=== PATIENT | female | born 1960 | race Caucasian/White ===

== ENCOUNTER 2017-02-11 17:56 | Emergency (ER) | payer MEDICARE ==
[~2017-02-11 17:56] MED LIST: AMOXICILLIN500 MG PO; BACTRIM DS1 TAB OR; BENADRYL 50MG C50 MG PO; BENADRYL25 M1 OR; BENADRYL25 MG PO; FLUOCINONIDE0.055 EX; GABAPENTIN300 MG PO; HYDROXYZ HCL25 MG PO; LORATADINE10 M1 PO; LORTAB 5/3255 MG PO; LORTAB 7.57.5 MG PO; LORTAB5 OR; LORTAB5 PO; MEDDOSEPAK OR; MEDDOSEPAK PO; MELOXICAM15 MG PO; MELOXICAM7.5 MG PO; NAPROSYN500 MG PO; NO; PEPCID20 MG PO; PERCOCET 10/31 COMBO PO; PREDNISONE20 MG PO; PREDNISONE5 MG PO; TRAMADOL HCL50 MG PO; ULTRAM50 M1 PO; VISTARIL25 MG PO
== END 2017-02-11 18:05 | disposition left against medical advice (07) ==
LOC: ED 17:56 → LWOBS 18:05
DX: Z91.19 Patient's noncompliance with other medical treatment and regimen (principal)

== ENCOUNTER 2017-10-11 02:03 | Emergency (ER) | payer MEDICARE ==
[~2017-10-11] VITALS: Ht 170.2 cm; Wt 65.0 kg
[~2017-10-11 02:03] MED LIST changes: +GABAPENTIN100 MG PO; -GABAPENTIN300 MG PO
[2017-10-11 03:06] VITALS: BP 159/110
== END 2017-10-11 03:06 | disposition home or self-care (01) ==
LOC: ED 02:03
DX: S39.012A Strain of muscle, fascia and tendon of lower back, initial encounter (principal); M96.1 Postlaminectomy syndrome, not elsewhere classified; R59.9 Enlarged lymph nodes, unspecified; X50.1XXA Overexertion from prolonged static or awkward postures, initial encounter; Y93.9 Activity, unspecified; Y92.009 Unspecified place in unspecified non-institutional (private) residence as the place of occurrence of the external cause

== ENCOUNTER 2018-01-01 11:20 | Observation (INO) | payer MEDICARE ==
[~2018-01-01] VITALS: Ht 170.2 cm; Wt 63.1 kg
--- NOTE | 2018-01-01 11:20 | NUR ---
PATIENT TO ROOM, COMMECTED TO MONITOR, EKG OBTAINED. O2 APPIED AT 2L/MIN. PATIENT HAS TREMORS TO UPPER AND LOWER EXTERMITIES. REPORTS HX OF RESTLESS LEG SYNDROME.
[2018-01-01 12:14] LABS: HEMATOCRIT 39.1 % (37.0-47.0); HEMOGLOBIN 12.6 g/dl (12.0-16.0); IMMATURE GRANULOCYTES 0.4 % (0.0-5.0); MEAN CORPUSCULAR HGB 29.1 pG CALC (26.0-32.0); MEAN CORPUSCULAR HGB CONC 32.2 g/L CALC (32.0-36.0); NEUT# 3.41 thou/uL (2.00-7.15); RED BLOOD COUNT 4.33 mill/uL (4.20-5.60); RED CELL DISTRI WIDTH 13.6 % (11.5-15.5)
[2018-01-01 12:22] LABS: MEAN CELL VOLUME 90.3 fL CALC (80.0-100.0)
[2018-01-01 12:32] LABS: ALBUMIN 4.3 g/dL (3.2-5.0); ALKALINE PHOSPHATASE 80 u/l (38-126); AMYLASE 79 u/l (30-110); ANION GAP 14 (6-22 (CALC)); BILIRUBIN, TOTAL 0.6 mg/dL (0.0-1.4); BUN 12 mg/dL (7-17); BUN/CREATININE RATIO 17 (12-20 (CALC)); CARBON DIOXIDE 27 mmol/l (22-30); CHLORIDE 104 mmol/l (95-108); CREATININE 0.7 mg/dL (0.5-1.0); GFR > 60 ML/MIN (>=60 (CALC)); GFR FOR AFR.AMER. > 60 ML/MIN (>=60 (CALC)); LIPASE 77 u/l (23-300); POTASSIUM 4.3 mmol/l (3.5-5.1); SODIUM 140 mmol/l (137-146); TOTAL PROTEIN 7.7 g/dL (6.3-8.2)
--- NOTE | 2018-01-01 12:35 | NUR ---
PATIENT REPORTS CHEST PAIN 3/10 AND BACK PAIN 6/10 REPORTS CHRONIC BACK PAIN. PATIENT VERBALIZES REQUEST TO LEAVE. INFORMED OF BP 171/103. MEDICATED WITH CLONIDINE 0.2 PO. TOLERATING WELL. REQUESTING PAIN MEDS TO TREAT BACK PAIN. INFORMED.
[2018-01-01 12:36] LABS: SGOT/AST 51 u/l (14-36)
[2018-01-01 12:43] LABS: MYOGLOBIN 19 ng/mL (0 - 62)
--- NOTE | 2018-01-01 13:45 | NUR ---
PATIENT REPORTS CHEST PRESSURE 3/10 AND BACK PAIN 3/10. DENIES ANY NEEDS AT THIS TIME. WILL CONTINUE TO MONITOR.
--- NOTE | 2018-01-01 14:40 | NUR ---
PATIENT MEDICATED WITH 324 MG OF ASPIRIN.
--- NOTE | 2018-01-01 15:09 | NUR ---
ATTEMPT MADE TO CALL REPORT, SPOKE TO LYDIA. NURSE NOT AVAILABLE AT THIS TIME. WILL CONTINUE TO MONITOR.
--- NOTE | 2018-01-01 15:22 | NUR ---
REPORT CALLED TO KRISTY OCONNOR.
--- NOTE | 2018-01-01 15:30 | NUR ---
PT TRANSFERRED TO FLOOR VIA WHEELCHAIR IN STABLE CONDITION ACCOMPANIED BY YIRN;PT AMBULATED TO STANDING SCALE AND BEDSIDE WITH A STEADY GAIT;WT AND VS OBTAINED BY WRITTER;ORIENTED TO ROOM AND CALL LIGHT SYSTEM;PT REPORTS CHEST DISCOMFORT FOR THE PAST FEW MTHS,STATES THAT IT COMES AND GOES AT TIMES.NOTHING MAKES IT BETTER OR WORSE;ASSESSMENT COMPLETED;PT ALERT AND ORIENTED X3,HYPERVERBAL;RESPIRATIONS EVEN AND UNLABORED ON RA,CLEAR LUNG SOUNDS;ABDOMEN SOFT ON PALPATION AND ACTIVE IN ALL 4 QUADRANTS,LAST BM 01/01/18;STRONG PEDAL PULSES;SKIN INTACT;#18G TO LAC FLUSHED AND PATENT,SITE APPEARS HEALTHY;TELE MONITOR IN PLACE;PT REPORTS VISUAL IMPAIRMENT R/T [place];SANDWICH PROVIDED PER REQUEST;ENCOURAGED TO CALL FOR ASSISTANCE IF NEEDED;CALL LIGHT IN REACH;WILL CONTINUE TO MONITOR
--- NOTE | 2018-01-01 15:30 | NUR ---
PATIENT TRANSPORTED TO [facility] VIA WHEELCHAIR WITH TELE MONITOR IN PLACE. KRISTY OCONNOR AT BEDSIDE. CARE RELINQUISHED. PATIENT IN STABLE CONDITION.
[2018-01-01 16:00] VITALS: BP 110/85
[2018-01-01 16:01] VITALS: BP 124/67
--- NOTE | 2018-01-01 17:18 | NUR ---
PT TRANSFERRED TO [facility] IN STABLE CONDITION VIA WHEELCHAIR ACCOMPANIED BY SALVADOR ZACARIAS
--- NOTE | 2018-01-01 17:30 | NUR ---
PT RETUENED BACK TO FLOOR IN STABLE CONDITION
[2018-01-01 18:23] LABS: URINE BILIRUBIN - DIPSTICK NEGATIVE (NEGATIVE); URINE BLOOD DIPSTICK NEGATIVE (NEGATIVE); URINE COLOR YELLOW; URINE GLUCOSE - DIPSTICK NEGATIVE (NEGATIVE); URINE KETONE NEGATIVE (NEGATIVE); URINE LEUK ESTERASE MODERATE (Negative); URINE NITRITE - DIPSTICK NEGATIVE (Negative); URINE PH 7.5 (4.5-8.0); URINE PROTEIN - DIPSTICK NEGATIVE (NEG-TRACE); URINE SPECIFIC GRAVITY <=1.005; URINE UROBILINOGEN - DIPSTICK 0.2 E.U./dL (0.2)
[2018-01-01 18:24] LABS: BARBITURATES NEGATIVE (NEGATIVE); COCAINE NEGATIVE (NEGATIVE); METHADONE NEGATIVE (NEGATIVE); OXCYCODONE NEGATIVE (NEGATIVE); TETRAHYDROCANNABIONOL NEGATIVE (NEGATIVE); TRICYLIC ANTIDEPRESSANTS NEGATIVE (NEGATIVE); URINE CLARITY CLEAR
[2018-01-01 18:31] LABS: URINE SQUAMOUS EPITHELIAL CELL FEW EPI/hpf (0-FEW)
[2018-01-01 18:55] VITALS: BP 124/80
--- NOTE | 2018-01-01 20:19 | NUR ---
PT CAME INTO HALLWAY DRESSED W/SHOES ON STATING THAT IF SHE CANNOT GET HER PAIN MEDICATION SHE WILL NOT STAY. PHYSICIAN CONTACTED FOR ORDERS.
--- NOTE | 2018-01-01 21:50 | NUR ---
PT IS UP DRESSED WALKING DOWN THE [place] ASKING FOR ICE/PROVIDED AND PT MEDICATED FOR REPORTED PAIN 8/10 ON PAIN SCALE. PT IS NOW SITTING ON BED W/ONE ONE LEG UP UNDER HER AND TENNIS SHOES ON. I WAS IN THE ROOM SHE PROCEEDED TO AMBULATE AROUND THE ROOM MOVING THINGS AROUND AND REARRANGING HER BST. I OFFERED ASSISTANCE AND REMINDED HER TO USE HER CALL LIGHT ALSO SHE NEEDS ASSISTANCE, SHE REPLIED, "OH I'M FINE, I DON'T NEED ANY HELP." PT WAS ASSESSED AT THIS TIME. NO S/O EDEMA, DENIES N/V. ABD FIRM/NON-TENDER AT THIS TIME, LOCX3. PT REPORTS THAT SHE DOES NOT DRIVE DUE TO [place] AND WOULD HAVE WALKED HOME IF SHE COULD NOT HAVE GOTTEN HER MEDICATIONS TONIGHT. POC DISCUSSED W/PT AND PT ENCOURAGED TO PLEASE CALL IF SHE HAS ANY OTHER NEEDS ARISE.
--- NOTE | 2018-01-01 23:50 | NUR ---
PT WALKED OUT TO NURSES STATION REQUESTING ADDITIONAL BLANKET/PROVIDED
[2018-01-02 00:12] VITALS: BP 90/53
--- NOTE | 2018-01-02 01:23 | NUR ---
PT WALKED OUT TO NURSES STATION REQUESTING ADDITIONAL PILLOWS/PROVIDED
--- NOTE | 2018-01-02 04:00 | NUR ---
PT MEDICATED FOR PAIN REPORTED 7/10 IN LOWER BACK. PT DENIES ANY OTHER NEEDS AT THIS TIME. CALL LIGHT AT BEDSIDE AND PT ENCOURAGED TO CALL IF ANY NEEDS ARISE.
[2018-01-02 04:23] VITALS: BP 120/77
[2018-01-02 06:18] LABS: HEMATOCRIT 35.6 % (37.0-47.0); HEMOGLOBIN 11.5 g/dl (12.0-16.0); IMMATURE GRANULOCYTES 0.6 % (0.0-5.0); MEAN CELL VOLUME 90.6 fL CALC (80.0-100.0); MEAN CORPUSCULAR HGB 29.3 pG CALC (26.0-32.0); MEAN CORPUSCULAR HGB CONC 32.3 g/L CALC (32.0-36.0); NEUT# 2.14 thou/uL (2.00-7.15); RED BLOOD COUNT 3.93 mill/uL (4.20-5.60); RED CELL DISTRI WIDTH 13.5 % (11.5-15.5)
[2018-01-02 06:36] LABS: ALBUMIN 3.5 g/dL (3.2-5.0); ALKALINE PHOSPHATASE 62 u/l (38-126); ANION GAP 10 (6-22 (CALC)); BILIRUBIN, TOTAL 0.3 mg/dL (0.0-1.4); BUN 16 mg/dL (7-17); BUN/CREATININE RATIO 24 (12-20 (CALC)); CARBON DIOXIDE 27 mmol/l (22-30); CHLORIDE 107 mmol/l (95-108); CREATININE 0.7 mg/dL (0.5-1.0); GFR > 60 ML/MIN (>=60 (CALC)); GFR FOR AFR.AMER. > 60 ML/MIN (>=60 (CALC)); MAGNESIUM 1.8 mg/dL (1.6-2.3); POTASSIUM 4.4 mmol/l (3.5-5.1); SGOT/AST 16 u/l (14-36); SODIUM 139 mmol/l (137-146); TOTAL PROTEIN 6.2 g/dL (6.3-8.2)
[2018-01-02 06:38] LABS: CHOLESTEROL HDL RATIO 2.8 (<4.4 (CALC))
--- NOTE | 2018-01-02 07:52 | NUR ---
SHIFT CHANGE REPORT FROM EULALIA CLEMONS AWAKE ALERT AND ORIENTED RESTING IN BED, NO C/O DISCOMFORT AT THIS TIME, TELE MONITOR IN PLACE, CALL MANZANARES IN REACH.
[2018-01-02 08:19] VITALS: BP 123/82
--- NOTE | 2018-01-02 08:54 | NUR ---
Discharge instructions given. Patient verbalizes understanding of same. Discharged in good condition via Ambulatory to Home with *Other. All belongings sent with pt. PT LEFT AMA.
--- NOTE | 2018-01-02 08:54 | NUR ---
Patient decides to leave AMA. Multiple attempts made to ecourage patient to remain here for continued treatment. Explained to patient all risks of leaving against medical advice including . Pt verbalized understanding of all risks. Pt also encouraged to return to [facility] at any time, especially if symptoms continue or become worse. Pt verbalized understanding.
--- NOTE | 2018-01-02 08:56 | NUR ---
PT ANXIOUS AND RESTLESS, WANTS TO GO HOME NOW REPORTING SHE LEFT HER 80+ YEARS OLD MOTHER AT HOME ALONE TO HAVE TEST DONE HERE IN HOSPITAL, SHE WAS ADVISED BP GOT ELEVATED DURING PROCEDURE AND WAS TOLD MY ED MD SHE WOULD BE KEPT OVERNIGHT FOR OBSERVATION AND SENT HOME IN AM ( REPORTED BY PT). BIOMETRIC SCREENER WAS NOTIFIED OF PT DECISION TO LEAVE AMA, PT WAS INFORMED OF RIGHTS WELL POSSIBLE NEGATIVE OUTCOMES OF HER DECISIONS STATED UNDERSTANDING, SIGNED AMA FORM AND LEFT @ 0854. BIOMETRIC SCREENER AND UNDERWRITING OPERATIONS MANAGER NOTIFIED, WILL BE NOTIFIED LATER.
--- NOTE | 2018-01-02 12:02 | NUR ---
NUTR'L RISK ASSESSMENT CONSULT RECEIVED 01/02. PT LEFT AMA.
== END 2018-01-02 08:53 | disposition left against medical advice (07) ==
LOC: ED 11:20 → ED-I 14:20 → ED 14:36 → MS2 14:37
PROVIDERS: Emergency Medicine; ADMIT Internal Medicine Nephrology; ATTEND Internal Medicine Nephrology
DX: R07.9 Chest pain, unspecified (principal); I16.1 Hypertensive emergency; I10 Essential (primary) hypertension; G89.28 Other chronic postprocedural pain; M54.5 Low back pain; F41.9 Anxiety disorder, unspecified; Z91.041 Radiographic dye allergy status

== ENCOUNTER 2018-11-20 16:27 | Emergency (ER) | payer MEDICARE ==
[~2018-11-20] VITALS: Ht 170.2 cm; Wt 68.0 kg
[2018-11-20] MEDS ORDERED: BENADRYL 50MG C50 MG PO (17:20)
[2018-11-20] MEDS ORDERED: PREDNISONE20 MG PO (17:20)
[2018-11-20] MEDS ORDERED: PEPCID20 MG PO (17:20)
[2018-11-20 17:38] VITALS: BP 140/90
== END 2018-11-20 17:38 | disposition home or self-care (01) ==
LOC: ED 16:27
DX: T78.40XA Allergy, unspecified, initial encounter (principal); X58.XXXA Exposure to other specified factors, initial encounter

== ENCOUNTER 2018-12-01 21:03 | Emergency (ER) | payer MEDICARE ==
[~2018-12-01] VITALS: Ht 170.2 cm; Wt 64.1 kg
[2018-12-01] MEDS ORDERED: MEDDOSEPAK PO (21:43)
[2018-12-01] MEDS ORDERED: HYDROXYZINE HCL25 M1 PO (21:43)
[2018-12-01 22:40] VITALS: BP 142/72
== END 2018-12-01 22:40 | disposition home or self-care (01) ==
LOC: ED 21:03
DX: T78.40XA Allergy, unspecified, initial encounter (principal); L50.0 Allergic urticaria

== ENCOUNTER 2018-12-14 21:29 | Emergency (ER) | payer MEDICARE ==
[~2018-12-14] VITALS: Ht 170.2 cm; Wt 65.0 kg
[~2018-12-14 21:29] MED LIST changes: +HYDROXYZINE HCL25 M1 PO
[2018-12-14 23:00] VITALS: BP 142/80
== END 2018-12-14 23:42 | disposition left against medical advice (07) ==
LOC: ED 21:29
DX: L30.9 Dermatitis, unspecified (principal); Z91.19 Patient's noncompliance with other medical treatment and regimen

== ENCOUNTER 2019-02-06 19:50 | Emergency (ER) | payer MEDICARE | END 2019-02-06 19:58 | LOC: ED 19:50 → LWOBS 19:58 | DX: Z53.21 Procedure and treatment not carried out due to patient leaving prior to being seen by health care provider (principal) ==

== ENCOUNTER 2019-03-05 14:52 | Emergency (ER) | payer MEDICARE | END 2019-03-05 15:11 | disposition left against medical advice (07) | LOC: ED 14:52 → LWOBS 15:11 | DX: Z53.21 Procedure and treatment not carried out due to patient leaving prior to being seen by health care provider (principal) ==

== ENCOUNTER 2019-03-07 | Emergency (ER) | payer MEDICARE ==
[2019-03-07 16:04] LABS: URINE BLOOD DIPSTICK NEGATIVE (NEGATIVE); URINE CLARITY SL CLOUDY; URINE COLOR YELLOW; URINE GLUCOSE - DIPSTICK NEGATIVE (NEGATIVE); URINE KETONE TRACE mg/dL (NEGATIVE); URINE LEUK ESTERASE MODERATE (Negative); URINE NITRITE - DIPSTICK POSITIVE (Negative); URINE PROTEIN - DIPSTICK 30 mg/dL (NEG-TRACE); URINE SPECIFIC GRAVITY >=1.030; URINE UROBILINOGEN - DIPSTICK 0.2 E.U./dL (0.2)
[2019-03-07 16:05] LABS: URINE BILIRUBIN - DIPSTICK NEGATIVE (NEGATIVE)
[2019-03-07 16:07] LABS: BARBITURATES NEGATIVE (NEGATIVE); COCAINE POSITIVE (NEGATIVE); METHADONE POSITIVE (NEGATIVE); TETRAHYDROCANNABIONOL NEGATIVE (NEGATIVE); TRICYLIC ANTIDEPRESSANTS POSITIVE (NEGATIVE)
[2019-03-07 16:08] LABS: OXCYCODONE NEGATIVE (NEGATIVE)
[2019-03-07 16:11] LABS: URINE BACTERIA RARE hpf; URINE SQUAMOUS EPITHELIAL CELL FEW EPI/hpf (0-FEW)
[2019-03-07] MEDS ORDERED: KEFLEX500 M1 PO (16:39)
[2019-03-07] MEDS ORDERED: MEDDOSEPAK PO (16:40)
== END 2019-03-07 16:50 | disposition home or self-care (01) ==
DX: L50.9 Urticaria, unspecified (principal); F14.10 Cocaine abuse, uncomplicated; F11.10 Opioid abuse, uncomplicated; N39.0 Urinary tract infection, site not specified; S40.812A Abrasion of left upper arm, initial encounter; S40.811A Abrasion of right upper arm, initial encounter; S80.812A Abrasion, left lower leg, initial encounter; S80.811A Abrasion, right lower leg, initial encounter; X58.XXXA Exposure to other specified factors, initial encounter

== ENCOUNTER 2019-03-20 | Emergency (ER) | payer MEDICARE ==
[~2019-03-20] MED LIST changes: +KEFLEX500 M1 PO
[2019-03-20] MEDS ORDERED: MEDDOSEPAK PO (15:39)
[2019-03-20] MEDS ORDERED: VISTARIL 50MG C50 MG PO (15:39)
== END 2019-03-20 15:49 | disposition home or self-care (01) ==
DX: L30.9 Dermatitis, unspecified (principal); L50.9 Urticaria, unspecified

== ENCOUNTER 2019-03-29 14:27 | Emergency (ER) | payer MEDICARE ==
[~2019-03-29 14:27] MED LIST changes: +VISTARIL 50MG C50 MG PO
== END 2019-03-29 14:45 | disposition left against medical advice (07) ==
LOC: ED 14:27 → LWOBS 14:39
DX: Z53.21 Procedure and treatment not carried out due to patient leaving prior to being seen by health care provider (principal)

== ENCOUNTER 2019-03-31 | Emergency (ER) | payer MEDICARE ==
[2019-03-31] MEDS ORDERED: BENADRYL 50MG C50 MG PO (15:16)
[2019-03-31 15:31] LABS: IMMATURE GRANULOCYTES 0.2 % (0.0-5.0); MEAN CORPUSCULAR HGB 31.3 pG CALC (26.0-32.0); MEAN CORPUSCULAR HGB CONC 33.3 g/L CALC (32.0-36.0); NEUT# 4.79 thou/uL (2.00-7.15); RED BLOOD COUNT 4.69 mill/uL (4.20-5.60); RED CELL DISTRI WIDTH 12.9 % (11.5-15.5)
[2019-03-31 15:33] LABS: HEMATOCRIT 44.1 % (37.0-47.0); HEMOGLOBIN 14.7 g/dl (12.0-16.0)
[2019-03-31 16:23] LABS: ALKALINE PHOSPHATASE 92 u/l (38-126); ANION GAP 15 (6-22 (CALC)); BUN 24 mg/dL (8-23); BUN/CREATININE RATIO 29 (12-20 (CALC)); CARBON DIOXIDE 23 mmol/l (22-30); CHLORIDE 103 mmol/l (95-108); CREATININE 0.8 mg/dL (0.5-1.0); GFR > 60 ML/MIN (>=60 (CALC)); GFR FOR AFR.AMER. > 60 ML/MIN (>=60 (CALC)); MAGNESIUM 1.9 mg/dL (1.6-2.3); POTASSIUM 4.3 mmol/l (3.5-5.1); SGOT/AST 28 u/l (9-36); SODIUM 137 mmol/l (137-146)
[2019-03-31 16:24] LABS: ALBUMIN 4.5 g/dL (3.2-5.0); BILIRUBIN, TOTAL 0.6 mg/dL (0.0-1.4); TOTAL PROTEIN 7.7 g/dL (6.3-8.2)
[2019-03-31 16:52] LABS: TSH, 3RD GENERATION 3.56 uIU/mL (0.47 - 4.68)
[2019-03-31] MEDS ORDERED: STERAPRED DS10 MG PO (17:03)
[2019-03-31] MEDS ORDERED: VISTARIL PO (17:03)
[2019-03-31] MEDS ORDERED: AMITRIPTYLIN50 MG PO (17:03)
== END 2019-03-31 17:44 | disposition home or self-care (01) ==
PROVIDERS: Family Medicine
DX: L50.9 Urticaria, unspecified (principal); L30.9 Dermatitis, unspecified; L29.9 Pruritus, unspecified
CPT/HCPCS: J2060

== ENCOUNTER 2019-04-17 | Emergency (ER) | payer MEDICARE ==
[~2019-04-17] MED LIST changes: +AMITRIPTYLIN50 MG PO; +STERAPRED DS10 MG PO; +VISTARIL PO
[2019-04-17] MEDS ORDERED: MEDDOSEPAK PO (15:50)
== END 2019-04-17 16:48 | disposition home or self-care (01) ==
DX: L50.9 Urticaria, unspecified (principal)
CPT/HCPCS: J2060

== ENCOUNTER 2019-04-18 | Emergency (ER) | payer MEDICARE ==
[2019-04-19 01:55] LABS: COCAINE POSITIVE (NEGATIVE); METHADONE NEGATIVE (NEGATIVE); TETRAHYDROCANNABIONOL NEGATIVE (NEGATIVE)
[2019-04-19 01:56] LABS: BARBITURATES NEGATIVE (NEGATIVE); OXCYCODONE NEGATIVE (NEGATIVE); TRICYLIC ANTIDEPRESSANTS NEGATIVE (NEGATIVE)
[2019-04-19] MEDS ORDERED: KLONOPIN1 MG PO (02:29)
== END 2019-04-19 03:50 | disposition home or self-care (01) ==
PROVIDERS: Emergency Medicine
DX: T78.40XA Allergy, unspecified, initial encounter (principal); X58.XXXA Exposure to other specified factors, initial encounter; F41.9 Anxiety disorder, unspecified
CPT/HCPCS: J2060

== ENCOUNTER 2019-04-27 | Emergency (ER) | payer MEDICARE ==
[~2019-04-27] MED LIST changes: +KLONOPIN1 MG PO
[2019-04-27 15:25] LABS: URINE BILIRUBIN - DIPSTICK NEGATIVE (NEGATIVE); URINE BLOOD DIPSTICK NEGATIVE (NEGATIVE); URINE COLOR YELLOW; URINE GLUCOSE - DIPSTICK NEGATIVE (NEGATIVE); URINE KETONE NEGATIVE (NEGATIVE); URINE LEUK ESTERASE NEGATIVE (NEGATIVE); URINE NITRITE - DIPSTICK NEGATIVE (Negative); URINE PROTEIN - DIPSTICK NEGATIVE (NEG-TRACE); URINE SPECIFIC GRAVITY 1.025; URINE UROBILINOGEN - DIPSTICK 0.2 E.U./dL (0.2)
[2019-04-27 15:30] LABS: BARBITURATES NEGATIVE (NEGATIVE); COCAINE NEGATIVE (NEGATIVE); METHADONE NEGATIVE (NEGATIVE); OXCYCODONE NEGATIVE (NEGATIVE); TETRAHYDROCANNABIONOL NEGATIVE (NEGATIVE); TRICYLIC ANTIDEPRESSANTS NEGATIVE (NEGATIVE)
[2019-04-27] MEDS ORDERED: BENADRYL 50MG C50 MG PO (15:45)
[2019-04-27] MEDS ORDERED: ATIVAN0.5 MG PO (15:45)
[2019-04-27] MEDS ORDERED: VISTARIL PO (15:48)
== END 2019-04-27 16:31 | disposition home or self-care (01) ==
PROVIDERS: Emergency Medicine
DX: T78.40XA Allergy, unspecified, initial encounter (principal); X58.XXXA Exposure to other specified factors, initial encounter; F41.9 Anxiety disorder, unspecified
CPT/HCPCS: J2060

== ENCOUNTER 2019-05-25 | Emergency (ER) | payer MEDICARE ==
[~2019-05-25] MED LIST changes: +ATIVAN0.5 MG PO
[2019-05-25 20:37] LABS: IMMATURE GRANULOCYTES 0.5 % (0.0-5.0); MEAN CELL VOLUME 93.9 fL CALC (80.0-100.0); MEAN CORPUSCULAR HGB 31.3 pG CALC (26.0-32.0); MEAN CORPUSCULAR HGB CONC 33.3 g/dL CAL (32.0-36.0); NEUT# 4.3 thou/uL (2.00-7.15); RED BLOOD COUNT 3.96 mill/uL (4.20-5.60); RED CELL DISTRI WIDTH 13.2 % (11.5-15.5)
[2019-05-25 20:38] LABS: HEMATOCRIT 37.2 % (37.0-47.0); HEMOGLOBIN 12.4 g/dl (12.0-16.0)
[2019-05-25 20:41] LABS: URINE BILIRUBIN - DIPSTICK NEGATIVE (NEGATIVE); URINE BLOOD DIPSTICK NEGATIVE (NEGATIVE); URINE COLOR YELLOW; URINE GLUCOSE - DIPSTICK NEGATIVE (NEGATIVE); URINE KETONE NEGATIVE (NEGATIVE); URINE LEUK ESTERASE MODERATE (NEGATIVE); URINE NITRITE - DIPSTICK NEGATIVE (Negative); URINE PH 6.5 (4.5-8.0); URINE PROTEIN - DIPSTICK NEGATIVE (NEG-TRACE); URINE UROBILINOGEN - DIPSTICK 0.2 E.U./dL (0.2)
[2019-05-25 20:43] LABS: URINE SQUAMOUS EPITHELIAL CELL FEW EPI/hpf (0-FEW)
[2019-05-25 20:54] LABS: ALBUMIN 3.9 g/dL (3.2-5.0); ALKALINE PHOSPHATASE 74 u/l (38-126); ANION GAP 12 (6-22 (CALC)); BUN 15 mg/dL (8-23); BUN/CREATININE RATIO 20 (12-20 (CALC)); CARBON DIOXIDE 22 mmol/l (22-30); CHLORIDE 110 mmol/l (95-108); CREATININE 0.7 mg/dL (0.5-1.0); GFR > 60 ML/MIN (>=60 (CALC)); GFR FOR AFR.AMER. > 60 ML/MIN (>=60 (CALC)); LIPASE 123 u/l (23-300); POTASSIUM 4.3 mmol/l (3.5-5.1); SGOT/AST 30 u/l (9-36); SODIUM 140 mmol/l (137-146); TOTAL PROTEIN 6.6 g/dL (6.3-8.2)
[2019-05-25 20:55] LABS: BILIRUBIN, TOTAL 0.3 mg/dL (0.0-1.4)
[2019-05-25] MEDS ORDERED: KEFLEX500 MG PO (21:02)
[2019-05-25] MEDS ORDERED: TRAMADOL HYDROC50 MG PO (21:54)
== END 2019-05-25 22:10 | disposition home or self-care (01) ==
DX: N39.0 Urinary tract infection, site not specified (principal); N20.0 Calculus of kidney; Z87.442 Personal history of urinary calculi

== ENCOUNTER 2019-06-25 | Emergency (ER) | payer MEDICARE ==
[~2019-06-25] MED LIST changes: +KEFLEX500 MG PO; +TRAMADOL HYDROC50 MG PO
[2019-06-25] MEDS ORDERED: PERCOCET 5/325M1 TAB PO (01:12)
[2019-06-25] MEDS ORDERED: GENTAMICIN0.3 % OD (01:12)
== END 2019-06-25 01:50 | disposition home or self-care (01) ==
DX: S05.01XA Injury of conjunctiva and corneal abrasion without foreign body, right eye, initial encounter (principal); H54.61 Unqualified visual loss, right eye, normal vision left eye; X58.XXXA Exposure to other specified factors, initial encounter; Z96.89 Presence of other specified functional implants

== ENCOUNTER 2019-07-04 | Emergency (ER) | payer MEDICARE ==
[~2019-07-04] MED LIST changes: +GENTAMICIN0.3 % OD; +PERCOCET 5/325M1 TAB PO
[2019-07-05] MEDS ORDERED: NEURONTIN300 MG PO (00:36)
[2019-07-05] MEDS ORDERED: VOLTAREN - GENE75 MG PO (00:36)
== END 2019-07-05 00:45 | disposition home or self-care (01) ==
DX: M54.16 Radiculopathy, lumbar region (principal); Z98.1 Arthrodesis status